=== PATIENT | female | born 1985 | race Caucasian/White ===

== ENCOUNTER 2017-09-06 11:25 | Day surgery (SDC) | payer OTHER ==
[~2017-09-06] VITALS: Ht 165.1 cm; Wt 97.5 kg
[~2017-09-06 11:25] MED LIST: ATENOL PO; BACLOFEN10 MG PO; BIRTH CONTROL; CALCIUM600 M3 PO; CHLOR PO; CYMBALTA60 MG PO; EFFEXOR75 MG OR; HYDRO PO; KEFLEX500 M1 PO; KLONOPIN1 MG OR; LOPRESSOR OR; LORTAB 5 OR; MELATONIN CR10 MG PO; METOPROLOL25 M1 OR; OTREXUP20 MG/0.4 IJ; PHENERGAN25 MG/TAB PO; PRILOSEC20 MG OR; PROTONIX40 M2 PO; SPIRONOLACTONE PO; TOPAMAX25 MG PO; TRAMADOL HYDROC50 MG PO; VITAMIN D1000 UNI1 PO; WP THYROID PO; [UNRECOGNIZED DRUG - OTHER] PO
[2017-09-06] MEDS ORDERED: SPIRONOLACTONE50 MG PO (11:40)
[2017-09-06 15:59] VITALS: BP 99/65
[2017-09-06] MEDS ORDERED: KEFLEX500 MG PO (16:11)
[2017-09-06] MEDS ORDERED: ECOTRIN LOW STR81 MG PO (16:11)
[2017-09-06] MEDS ORDERED: PERCOCET 10/31 COMBO PO (16:11)
== END 2017-09-06 16:30 | disposition home or self-care (01) | DRG 504 ==
LOC: ORM 11:25
PROVIDERS: ATTEND Podiatrist Foot & Ankle Surgery
PROC: 0JCR0ZZ Extirpation of Matter from Left Foot Subcutaneous Tissue and Fascia, Open Approach (ICD-10-PCS; principal; 2017-09-06)
PROC: 0QBM0ZZ Excision of Left Tarsal, Open Approach (ICD-10-PCS; 2017-09-06)
DX: M60.272 Foreign body granuloma of soft tissue, not elsewhere classified, left ankle and foot (principal); L02.612 Cutaneous abscess of left foot; M77.32 Calcaneal spur, left foot; Z18.9 Retained foreign body fragments, unspecified material